=== PATIENT | male | born 1955 | race Caucasian/White ===

== ENCOUNTER 2018-11-14 14:00 | Inpatient (IN) | payer BC, MEDICARE ==
[~2018-11-14] VITALS: Ht 175.3 cm; Wt 83.6 kg
[2018-11-14 14:50] LABS: BASO % 1 % (0-3); EOS # 0.1 x10^3/uL (0.0-0.7); EOS % 1 % (0-3); HEMOGLOBIN 16.1 g/dL (13.0-17.5); LYMPH # 1.3 x10^3/uL (1.0-4.8); LYMPH % 14 % (24-48); MEAN CORPUSCULAR HEMOGLOBIN 32 pg (25-35); MEAN CORPUSCULAR HGB CONC 34 g/dL (31-37); MEAN CORPUSCULAR VOLUME 94 fL (79-100); MONO # 0.4 x10^3/uL (0.0-1.1); MONO % 5 % (0-9); NEUT # 7.1 x10^3uL (1.8-7.7); NEUT % 79 % (31-73); PLATELET COUNT 259 x10^3/uL (140-400); RED BLOOD COUNT 5.09 x10^6/uL (4.30-5.70); WHITE BLOOD COUNT 8.9 x10^3/uL (4.0-11.0)
--- NOTE | 2018-11-14 14:58 | RAD ---
CT HEAD WO CONTRAST History: Slurred speech, weakness Comparison: None. Technique: Noncontrast CT imaging was performed of the head. Exposure: One or more of the following individualized dose reduction techniques were utilized for this examination: 1. Automated exposure control 2. Adjustment of the mA and/or kV according to patient size 3. Use of iterative reconstruction technique. Findings: No acute extra-axial or parenchymal hemorrhage is identified. There is no significant intra-axial mass effect, midline shift, or extra-axial fluid collection. The carrillo-white differentiation of the major vascular territories is preserved. There is [id number] third ventriculomegaly and mild lateral ventriculomegaly although there is a component of supratentorial involutional change present. The mastoid air cells and the visualized paranasal sinuses are aerated. No acute calvarial abnormality is identified. Impression: 1. There is no evidence of acute intracranial hemorrhage. There is third and lateral ventriculomegaly although may be due to atrophy, no older exams to evaluate for change in size of ventricles. Electronically signed by: Martínez Diallo MD (11/14/2018 2:55 PM) [facility]
[2018-11-14 15:02] LABS: PROTHROMBIN TIME PATIENT 12.2 SEC (11.7-14.0)
[2018-11-14 15:12] LABS: CREATININE 0.9 mg/dL (0.7-1.3); GFR 85.2; POTASSIUM 4.3 mmol/L (3.5-5.1)
--- NOTE | 2018-11-14 15:13 | PHYS DOC ---
Past Medical History Past Medical History: Other Additional Past Medical Histor: Multiple sclerosis Past Surgical History: Other Additional Past Surgical Histo: I&D of abscess, tendon repair Alcohol Use: None Drug Use: None Adult General Chief Complaint Chief Complaint: NEURO SYMPTOMS/DEFICITS [facility] Patient is a 63 year old male who presents with with complaints of slurry speech and leg weakness with acute onset this morning at 0300. He is accompanied by his who provides history. He has a history of multiple sclerosis with chronic right sided weakness but was worse today. He reports that at 0300 he woke to urinate but was unable to ambulate like normal, and instead crawled to his bathroom, pulled himself to the toilet, relieved himself and then returned to bed, without alerting his . At 0930 his noticed he was slurring his words and thought his R-arm and leg were weaker than usual and decided to bring him to the hospital. His reports going to bed with him around 1130 pm and he was demonstrated no symptoms at that time. He denies history of TIA/stroke, heart disease. He denies CP, SOB, abdominal symptoms, lightheadedness, f/c/n/v. He denies blood thinners or ASA. He is followed by Dr. Brown for his multiple sclerosis which is treated with methotrexate.[] Review of Systems Review of Systems Constitutional: Denies fever or chills [] Eyes: Denies change in visual acuity, redness, or eye pain [] HENT: Denies nasal congestion or sore throat [] Respiratory: Denies cough or shortness of breath [] Cardiovascular: No additional information not addressed in HPI [] GI: Denies abdominal pain, nausea, vomiting, bloody stools or diarrhea [] : Denies dysuria or hematuria [] Musculoskeletal: Denies back pain or joint pain [] Integument: Denies rash or skin lesions [] Neurologic: Denies headache, reports upper and lower extremity weakness and sensory change[] Endocrine: Denies polyuria or polydipsia [] All other systems were reviewed and found to be within normal limits, except as documented in this note. Current Medications Current Medications see med list Allergies Allergies Allergies Coded Allergies Type Severity Reaction Last Updated Verified No Known Drug Allergies 12/06/14 No Physical Exam Physical Exam Constitutional: Well developed, well nourished, no acute distress, non-toxic appearance. [] HENT: Normocephalic, atraumatic, bilateral external ears normal, oropharynx moist, no oral exudates, nose normal. [] Eyes: PERRLA, EOMI, conjunctiva normal, no discharge. [] Neck: Normal range of motion, no tenderness, supple, no stridor. [] Cardiovascular:Heart rate regular rhythm, no murmur [] Lungs & Thorax: Bilateral breath sounds clear to auscultation [] Abdomen: Bowel sounds normal, soft, no tenderness, no masses, no pulsatile masses. [] Skin: Warm, dry, no erythema, no rash. [] Back: No tenderness, no CVA tenderness. [] Extremities: No tenderness, no cyanosis, no clubbing, ROM intact, no edema. [] Neurologic: Alert and oriented X 3, CN 2-11 intact decreased strength in the right lower extremity does fall to the bed client solutions director strengths are may be slightly decreased on the right speech is slurred face is symmetric C stroke scale Psychologic: Affect normal, judgement normal, mood normal. [] Current Patient Data Vital Signs Vital Signs Date Time Temp Pulse Resp B/P (MAP) Pulse Ox O2 Delivery O2 Flow Rate FiO2 11/14/18 14:15 98.9 60 18 147/74 (98) 96 Room Air 98.9 Lab Values Laboratory Tests Test 11/14/18 14:40 White Blood Count 8.9 x10^3/uL (4.0-11.0) Red Blood Count 5.09 x10^6/uL (4.30-5.70) Hemoglobin 16.1 g/dL (13.0-17.5) Hematocrit 48.0 % (39.0-53.0) Mean Corpuscular Volume 94 fL (79-100) Mean Corpuscular Hemoglobin 32 pg (25-35) Mean Corpuscular Hemoglobin Concent 34 g/dL (31-37) Red Cell Distribution Width 14.0 % (11.5-14.5) Platelet Count 259 x10^3/uL (140-400) Neutrophils (%) (Auto) 79 % (31-73) H Lymphocytes (%) (Auto) 14 % (24-48) L Monocytes (%) (Auto) 5 % (0-9) Eosinophils (%) (Auto) 1 % (0-3) Basophils (%) (Auto) 1 % (0-3) Neutrophils # (Auto) 7.1 x10^3uL (1.8-7.7) Lymphocytes # (Auto) 1.3 x10^3/uL (1.0-4.8) Monocytes # (Auto) 0.4 x10^3/uL (0.0-1.1) Eosinophils # (Auto) 0.1 x10^3/uL (0.0-0.7) Basophils # (Auto) 0.0 x10^3/uL (0.0-0.2) Prothrombin Time 12.2 SEC (11.7-14.0) Prothrombin Time INR 0.9 (0.8-1.1) Sodium Level 140 mmol/L (136-145) Potassium Level 4.3 mmol/L (3.5-5.1) Chloride Level 102 mmol/L (98-107) Carbon Dioxide Level 31 mmol/L (21-32) Anion Gap 7 (6-14) Blood Urea Nitrogen 17 mg/dL (8-26) Creatinine 0.9 mg/dL (0.7-1.3) Estimated GFR (Cockcroft-Gault) 85.2 BUN/Creatinine Ratio 19 (6-20) Glucose Level 107 mg/dL (70-99) H Calcium Level 9.0 mg/dL (8.5-10.1) Total Bilirubin 0.3 mg/dL (0.2-1.0) Aspartate Amino Transferase (AST) 22 U/L (15-37) Alanine Aminotransferase (ALT) 35 U/L (16-63) Alkaline Phosphatase 85 U/L (46-116) Total Protein 7.4 g/dL (6.4-8.2) Albumin 3.8 g/dL (3.4-5.0) Albumin/Globulin Ratio 1.1 (1.0-1.7) Laboratory Tests 11/14/18 14:40 Laboratory Tests 11/14/18 14:40 EKG EKG []EKG shows a normal sinus rhythm rate of 58 no acute ischemic changes noted interpreted by me the time of encounter. Radiology/Procedures Radiology/Procedures [] Impressions: Impression: 1. There is no evidence of acute intracranial hemorrhage. There is third and lateral ventriculomegaly although may be due to atrophy, no older exams to evaluate for change in size of ventricles. Electronically signed by: Martínez Diallo MD (11/14/2018 2:55 PM) [facility] Multiple healed right rib fracture deformities are identified. The heart size is not enlarged. No evidence of pneumothorax. No pleural effusion. IMPRESSION: No evidence of acute infiltrate. Electronically signed by: Larry Samuel MD (11/14/2018 3:11 PM) [facility] DICTATED and SIGNED BY: LARRY SAMUEL MD DATE: 11/14/18 1511 Course & Med Decision Making Course & Med Decision Making Pertinent Labs and Imaging studies reviewed. (See chart for details) Pt presents to ED with acute onset slurry speech and increased R-sided weakness from baseline with history of MS. Last known normal was 11:[address] to assess hemorrhage status with option to admit for MRI. Patient has no known CVA history and does have some mild right-sided weakness with new slurred speech according to the is not a TPA candidate due to time of onset Discussed with ARNEL FOR ADMIT ASPIRIN ORDERED IN ER, WELL SWALLOW SCREEN. [] Dragon Disclaimer Dragon Disclaimer This electronic medical record was generated, in whole or in part, using a voice recognition dictation system. Departure Departure Impression: Primary Impression: Weakness Disposition: ADMITTED INPATIENT Admitting Physician: Other Condition: STABLE AUBREE SETHI MD Nov 14, 2018 15:13
--- NOTE | 2018-11-14 15:13 | RAD ---
PORTABLE CHEST 1V History: WEAKNESS. Comparison with January 14, 2015 image, no report. Multiple healed right rib fracture deformities are identified. The heart size is not enlarged. No evidence of pneumothorax. No pleural effusion. IMPRESSION: No evidence of acute infiltrate. Electronically signed by: Larry Samuel MD (11/14/2018 3:11 PM) [facility]
[2018-11-14 15:17] LABS: ALBUMIN 3.8 g/dL (3.4-5.0); ALBUMIN/GLOBULIN RATIO 1.1 (1.0-1.7); TOTAL BILIRUBIN 0.3 mg/dL (0.2-1.0); TOTAL PROTEIN 7.4 g/dL (6.4-8.2)
[2018-11-14] MEDS ORDERED: ASPIRIN CHEWABLE 81 MG TABLET. PO ONE (15:30)
--- NOTE | 2018-11-14 16:08 | EKG ---
[facility] [address] [place] [address] Test Date: 2018-11-14 Test Time: 15:08:55 Pat Name: LEFTY ROJO Department: Room: 4 1 Gender: M Direct Marketing Intern: : 1955 Requested By: AUBREE SETHI Order Number: [id number] Reading MD: Freddy Stone MD Measurements Intervals [employer] Rate: 58 P: 31 ID: [id number] QRS: 25 QRSD: 88 T: 36 QT: 420 QTc: 416 Interpretive Statements SINUS RHYTHM Electronically Signed On 11-18-2018 14:59:29 CDT by Freddy Stone MD
[2018-11-14] MEDS ORDERED: DOCUSATE SODIUM 100 MG CAPSULE. PO PRN (16:15)
[2018-11-14] MEDS ORDERED: ALBUTEROL SULFATE 2.5 MG/3 ML NEBU. NEB PRN (16:15)
[2018-11-14] MEDS ORDERED: MAG HYDROX/ALUMINUM HYD/SIMETH 30 ML ORAL.SUSP PO PRN (16:15)
[2018-11-14] MEDS ORDERED: HYDROmorphone 2 MG/ML VIAL IV PRN (16:15)
[2018-11-14] MEDS ORDERED: LORazepam 0.5 MG TABLET PO PRN (16:15)
[2018-11-14] MEDS ORDERED: ACETAMINOPHEN 325 MG TABLET. PO PRN (16:15)
[2018-11-14] MEDS ORDERED: IPRATRPIUM/ALBUTEROL 0.5/2.5MG 3 ML NEBU. NEB SCH (16:15)
[2018-11-14] MEDS ORDERED: diphenhydrAMINE 50 MG/ML VIAL IVP PRN (16:15)
[2018-11-14] MEDS ORDERED: guaiFENesin ORAL 200 MG/10 ML LIQUID. PO PRN (16:15)
[2018-11-14] MEDS ORDERED: ONDANSETRON PF 4 MG/2 ML VIAL. IV PRN (16:15)
--- NOTE | 2018-11-14 16:23 | PDOC1 ---
History and Physical Date of Admission Date of Admission 11/14/2018 Identification/Chief Complaint Chief Complaint Weakness Problems: (1) Weakness Source Source: Caregiver, Chart review, Patient History of Present Illness History of Present Illness Patient is a 63-year-old gentleman with past medical history of multiple sclerosis diagnosed several years back. He has pain under the care of Dr. Brown neurology in the outpatient setting. The patient has undergone methotrexate therapy as per his was sitting at bedside and aiding with the history taking. Today the patient earlier in the day presented right sided weakness which to the patient's seem more pronounced than his usual baseline. She also had some slurred speech. There was a concern for an acute stroke reason why he was brought to the emergency department for further evaluation and treatment. The patient denied recent infections no fever no chills no neck stiffness no loss of consciousness. The patient denies ringing in the ears he denies vertigo-type of symptoms, no sick contacts were reported. The patient denies chest pain no palpitations no cough sputum production no pleurisy. He denies nausea vomiting no diarrhea and no decrease in oral intake either. He is alert awake oriented in person time place and situation cranial nerves II through XII seem to be intact he is right-handed and he does have probably F4 out of 5 motor strength or the right side slightly weaker than the left on both upper and lower extremities. He does not seem to have increased tone no spasticity noted no Lhermitte sign present. Last time he was seen by his neurologist was late in 2018 around July with no changes to his therapy. The patient has not had steroids in a long time and patient's refers to me that Dr. Brown treats him with a methotrexate regimen Plan of care clinic detail and all of her concerns address to the best of my abilities Past Medical History CENTRAL NERVOUS SYSTEM: Other (Multiple sclerosis) Past Surgical History Past Surgical History: No pertinent history Family History Family History: Other (no pertinent history ) Social History Smoke: No ALCOHOL: none Drugs: None Current Problem List Problem List Problems Medical Problems: (1) Weakness Status: Acute Current Medications Current Medications Current Medications Medications (Trade) Dose Ordered Sig/Td Start Time Stop Time Status Last Admin Dose Admin Acetaminophen (Tylenol) 650 mg PRN Q4HRS PRN 11/14/18 16:15 UNV Al Hydroxide/Mg Hydroxide (Mylanta Plus Xs) 30 ml PRN DAILY PRN 11/14/18 16:15 UNV Albuterol Sulfate (Ventolin Neb Soln) 2.5 mg PRN Q4HRS PRN 11/14/18 16:15 UNV Albuterol/ Ipratropium (Duoneb) 3 ml Q4H 11/14/18 16:15 UNV Aspirin (Children'S Aspirin) 324 mg 1X ONCE 11/14/18 15:30 11/14/18 15:31 DC 11/14/18 15:49 324 MG Diphenhydramine HCl (Benadryl) 25 mg PRN Q4HRS PRN 11/14/18 16:15 UNV Docusate Sodium (Colace) 100 mg PRN BID PRN 11/14/18 16:15 UNV Guaifenesin (Robitussin) 200 mg PRN Q4HRS PRN 11/14/18 16:15 UNV Hydromorphone HCl (Dilaudid) 1 mg PRN Q2HRS PRN 11/14/18 16:15 UNV Lorazepam (Ativan) 0.5 mg PRN Q4HRS PRN 11/14/18 16:15 UNV Ondansetron HCl (Zofran) 4 mg PRN Q4HRS PRN 11/14/18 16:15 UNV Allergies Allergies Allergies Coded Allergies Type Severity Reaction Last Updated Verified No Known Drug Allergies 12/06/14 No ROS Review of System CONSTITUTIONAL: No fever or chills EYES: No recent changes SKIN: No rash or itching CARDIOVASCULAR: No chest pain, syncope, palpitations, or edema RESPIRATORY: No SOB or cough GASTROINTESTINAL: No nausea, vomiting or abdominal pain NEUROLOGICAL: No headaches + weakness ENDOCRINE: No cold or heat intolerance GENITOURINARY: No urgency or frequency of urination MUSCULOSKELETAL: No back pain or joint pain LYMPHATICS: No enlarged lymph nodes PSYCHIATRIC: No anxiety or depression Physical Exam Physical Exam GEN.: No apparent distress. Alert and oriented. HEENT: Head is normocephalic, atraumatic NECK: Supple. LUNGS: Clear to auscultation. HEART: RRR, S1, S2 present. Peripheral pulses intact ABDOMEN: Soft, nontender. Positive bowel sounds. EXTREMITIES: Without any cyanosis. NEUROLOGIC: Normal speech, normal tone PSYCHIATRIC: Normal affect, normal mood. SKIN: No ulcerations Vitals Vitals Vital Signs Date Time Temp Pulse Resp B/P (MAP) Pulse Ox O2 Delivery O2 Flow Rate FiO2 11/14/18 15:30 72 16 98 11/14/18 14:15 98.9 147/74 (98) Room Air 98.9 Labs Labs Laboratory Tests Test 11/14/18 14:40 White Blood Count 8.9 x10^3/uL (4.0-11.0) Red Blood Count 5.09 x10^6/uL (4.30-5.70) Hemoglobin 16.1 g/dL (13.0-17.5) Hematocrit 48.0 % (39.0-53.0) Mean Corpuscular Volume 94 fL (79-100) Mean Corpuscular Hemoglobin 32 pg (25-35) Mean Corpuscular Hemoglobin Concent 34 g/dL (31-37) Red Cell Distribution Width 14.0 % (11.5-14.5) Platelet Count 259 x10^3/uL (140-400) Neutrophils (%) (Auto) 79 % (31-73) Lymphocytes (%) (Auto) 14 % (24-48) Monocytes (%) (Auto) 5 % (0-9) Eosinophils (%) (Auto) 1 % (0-3) Basophils (%) (Auto) 1 % (0-3) Neutrophils # (Auto) 7.1 x10^3uL (1.8-7.7) Lymphocytes # (Auto) 1.3 x10^3/uL (1.0-4.8) Monocytes # (Auto) 0.4 x10^3/uL (0.0-1.1) Eosinophils # (Auto) 0.1 x10^3/uL (0.0-0.7) Basophils # (Auto) 0.0 x10^3/uL (0.0-0.2) Prothrombin Time 12.2 SEC (11.7-14.0) Prothromb Time International Ratio 0.9 (0.8-1.1) Sodium Level 140 mmol/L (136-145) Potassium Level 4.3 mmol/L (3.5-5.1) Chloride Level 102 mmol/L (98-107) Carbon Dioxide Level 31 mmol/L (21-32) Anion Gap 7 (6-14) Blood Urea Nitrogen 17 mg/dL (8-26) Creatinine 0.9 mg/dL (0.7-1.3) Estimated GFR (Cockcroft-Gault) 85.2 BUN/Creatinine Ratio 19 (6-20) Glucose Level 107 mg/dL (70-99) Calcium Level 9.0 mg/dL (8.5-10.1) Total Bilirubin 0.3 mg/dL (0.2-1.0) Aspartate Amino Transf (AST/SGOT) 22 U/L (15-37) Alanine Aminotransferase (ALT/SGPT) 35 U/L (16-63) Alkaline Phosphatase 85 U/L (46-116) Total Protein 7.4 g/dL (6.4-8.2) Albumin 3.8 g/dL (3.4-5.0) Albumin/Globulin Ratio 1.1 (1.0-1.7) Laboratory Tests Test 11/14/18 14:40 White Blood Count 8.9 x10^3/uL (4.0-11.0) Red Blood Count 5.09 x10^6/uL (4.30-5.70) Hemoglobin 16.1 g/dL (13.0-17.5) Hematocrit 48.0 % (39.0-53.0) Mean Corpuscular Volume 94 fL (79-100) Mean Corpuscular Hemoglobin 32 pg (25-35) Mean Corpuscular Hemoglobin Concent 34 g/dL (31-37) Red Cell Distribution Width 14.0 % (11.5-14.5) Platelet Count 259 x10^3/uL (140-400) Neutrophils (%) (Auto) 79 % (31-73) Lymphocytes (%) (Auto) 14 % (24-48) Monocytes (%) (Auto) 5 % (0-9) Eosinophils (%) (Auto) 1 % (0-3) Basophils (%) (Auto) 1 % (0-3) Neutrophils # (Auto) 7.1 x10^3uL (1.8-7.7) Lymphocytes # (Auto) 1.3 x10^3/uL (1.0-4.8) Monocytes # (Auto) 0.4 x10^3/uL (0.0-1.1) Eosinophils # (Auto) 0.1 x10^3/uL (0.0-0.7) Basophils # (Auto) 0.0 x10^3/uL (0.0-0.2) Prothrombin Time 12.2 SEC (11.7-14.0) Prothromb Time International Ratio 0.9 (0.8-1.1) Sodium Level 140 mmol/L (136-145) Potassium Level 4.3 mmol/L (3.5-5.1) Chloride Level 102 mmol/L (98-107) Carbon Dioxide Level 31 mmol/L (21-32) Anion Gap 7 (6-14) Blood Urea Nitrogen 17 mg/dL (8-26) Creatinine 0.9 mg/dL (0.7-1.3) Estimated GFR (Cockcroft-Gault) 85.2 BUN/Creatinine Ratio 19 (6-20) Glucose Level 107 mg/dL (70-99) Calcium Level 9.0 mg/dL (8.5-10.1) Total Bilirubin 0.3 mg/dL (0.2-1.0) Aspartate Amino Transf (AST/SGOT) 22 U/L (15-37) Alanine Aminotransferase (ALT/SGPT) 35 U/L (16-63) Alkaline Phosphatase 85 U/L (46-116) Total Protein 7.4 g/dL (6.4-8.2) Albumin 3.8 g/dL (3.4-5.0) Albumin/Globulin Ratio 1.1 (1.0-1.7) VTE Prophylaxis Ordered VTE Prophylaxis Devices: No VTE Pharmacological Prophylaxi: Yes Assessment/Plan Assessment/Plan Acute multiple sclerosis exacerbation Weakness most likely secondary to the above. Acute stroke less likely Plan: request records from Dr Brown office MRI of the brain supportive measures will restart home meds once available for review further recommendations based on clinical course dvt prophylaxis: lovenox will consult PT and BARBARA RAMIREZ MD Nov 14, 2018 16:23
[2018-11-14 16:57] LABS: BILIRUBIN,URINE NEGATIVE (NEG); CLARITY,URINE CLOUDY; COLOR,URINE YELLOW; NITRITE,URINE NEGATIVE (NEG); PH,URINE 6.5; PROTEIN,URINE NEGATIVE (NEG-TRACE); UROBILINOGEN,URINE 0.2 mg/dL (0.2 mg/dL)
[2018-11-14 17:06] LABS: AMORPHOUS SEDIMENT,UR PRESENT /HPF; BACTERIA,URINE 0 /HPF (0-FEW); WBC,URINE 0 /HPF (0-4)
[2018-11-14 17:34] VITALS: BP 128/64
[2018-11-14] MEDS ORDERED: FOLI1TAB16 PO (18:23)
[2018-11-14] MEDS ORDERED: PARO20TA3 PO (18:23)
[2018-11-14] MEDS ORDERED: QUET50TA PO (18:23)
[2018-11-14] MEDS ORDERED: BACL10TA PO (18:23)
[2018-11-14 19:57] VITALS: BP 96/43
[2018-11-14] MEDS: IPRATRPIUM/ALBUTEROL 0.5/2.5MG 3 ML NEBU. NEB SCH ×2 (20:00→23:01)
[2018-11-14] MEDS: BACLOFEN 10 MG TABLET. PO SCH (20:37)
[2018-11-14 23:38] VITALS: BP 110/63
[2018-11-15] MEDS: IPRATRPIUM/ALBUTEROL 0.5/2.5MG 3 ML NEBU. NEB SCH ×2 (02:53→08:00)
[2018-11-15 03:59] VITALS: BP 126/65
[2018-11-15 07:15] VITALS: BP 102/59
[2018-11-15] MEDS: BACLOFEN 10 MG TABLET. PO SCH ×2 (08:53→20:39)
[2018-11-15] MEDS ORDERED: QUEtiapine 25 MG TABLET. PO SCH ×2 (09:00→21:00)
[2018-11-15] MEDS ORDERED: PARoxetine 20 MG TABLET PO SCH ×2 (09:00→21:00)
--- NOTE | 2018-11-15 09:00 | NUR ---
Seroquel and Paxil changed to HS per Pt's spouse request.
[2018-11-15] MEDS ORDERED: IPRATRPIUM/ALBUTEROL 0.5/2.5MG 3 ML NEBU. NEB PRN (10:00)
--- NOTE | 2018-11-15 10:25 | PDOC ---
PROGRESS NOTES Chief Complaint Chief Complaint general weakness, slurred speech History of Present Illness History of Present Illness Patient sitting in bed side chair conversing with . He experienced sudden onset of generalized weakness and slurred speech yesterday, weakness much worse than typical MS exacerbations. His reports he is back to baseline today. Sees Dr. Brown at [facility] for neurology, does not typically use steroids for exacerbations. Vitals Vitals Vital Signs Date Time Temp Pulse Resp B/P (MAP) Pulse Ox O2 Delivery O2 Flow Rate FiO2 11/15/18 07:15 98.0 74 18 102/59 (73) 96 Room Air 98.0 Physical Exam General: Alert, Oriented X3, Cooperative, No acute distress Heart: Regular rate, Normal S1, Normal S2, No murmurs Lungs: Clear, Other (symmetric chest expansion, good inspiratory effort) Abdomen: Normal bowel sounds, Soft, No tenderness Extremities: No clubbing, No cyanosis, No edema Skin: No rashes, No breakdown, No significant lesion Labs LABS Laboratory Tests Test 11/14/18 14:40 11/14/18 16:50 White Blood Count 8.9 x10^3/uL (4.0-11.0) Red Blood Count 5.09 x10^6/uL (4.30-5.70) Hemoglobin 16.1 g/dL (13.0-17.5) Hematocrit 48.0 % (39.0-53.0) Mean Corpuscular Volume 94 fL (79-100) Mean Corpuscular Hemoglobin 32 pg (25-35) Mean Corpuscular Hemoglobin Concent 34 g/dL (31-37) Red Cell Distribution Width 14.0 % (11.5-14.5) Platelet Count 259 x10^3/uL (140-400) Neutrophils (%) (Auto) 79 % (31-73) Lymphocytes (%) (Auto) 14 % (24-48) Monocytes (%) (Auto) 5 % (0-9) Eosinophils (%) (Auto) 1 % (0-3) Basophils (%) (Auto) 1 % (0-3) Neutrophils # (Auto) 7.1 x10^3uL (1.8-7.7) Lymphocytes # (Auto) 1.3 x10^3/uL (1.0-4.8) Monocytes # (Auto) 0.4 x10^3/uL (0.0-1.1) Eosinophils # (Auto) 0.1 x10^3/uL (0.0-0.7) Basophils # (Auto) 0.0 x10^3/uL (0.0-0.2) Prothrombin Time 12.2 SEC (11.7-14.0) Prothromb Time International Ratio 0.9 (0.8-1.1) Sodium Level 140 mmol/L (136-145) Potassium Level 4.3 mmol/L (3.5-5.1) Chloride Level 102 mmol/L (98-107) Carbon Dioxide Level 31 mmol/L (21-32) Anion Gap 7 (6-14) Blood Urea Nitrogen 17 mg/dL (8-26) Creatinine 0.9 mg/dL (0.7-1.3) Estimated GFR (Cockcroft-Gault) 85.2 BUN/Creatinine Ratio 19 (6-20) Glucose Level 107 mg/dL (70-99) Calcium Level 9.0 mg/dL (8.5-10.1) Total Bilirubin 0.3 mg/dL (0.2-1.0) Aspartate Amino Transf (AST/SGOT) 22 U/L (15-37) Alanine Aminotransferase (ALT/SGPT) 35 U/L (16-63) Alkaline Phosphatase 85 U/L (46-116) Total Protein 7.4 g/dL (6.4-8.2) Albumin 3.8 g/dL (3.4-5.0) Albumin/Globulin Ratio 1.1 (1.0-1.7) Urine Collection Type Unknown Urine Color Yellow Urine Clarity Cloudy Urine pH 6.5 Urine Specific [place] 1.020 Urine Protein Negative mg/dL (NEG-TRACE) Urine Glucose (UA) Negative mg/dL (NEG) Urine Ketones (Stick) Negative mg/dL (NEG) Urine Blood Negative (NEG) Urine Nitrite Negative (NEG) Urine Bilirubin Negative (NEG) Urine Urobilinogen Dipstick 0.2 mg/dL (0.2 mg/dL) Urine Leukocyte Esterase Negative (NEG) Urine RBC 1-2 /HPF (0-2) Urine WBC 0 /HPF (0-4) Urine Amorphous Sediment Present /HPF Urine Bacteria 0 /HPF (0-FEW) Urine Mucus Mod /LPF Review of Systems Review of Systems as per above Assessment and Plan Assessmemt and Plan Problems Medical Problems: (1) Weakness Status: Acute Assessment: TIA Possible acute MS exacerbation Generalized weakness Plan: Consult Neurology Brain MRI pending Head CT - no acute hemorrhage, 3rd and lateral ventriculomegaly Aspirin 325 mg daily CXR negative UA negative Labs wnl PT/OT Dispo: will await neuro input, hope to discharge later today if ok with neuro Comment Review of Relevant I have reviewed the following items [place] (where applicable) has been applied. Labs Laboratory Tests Test 11/14/18 14:40 11/14/18 16:50 White Blood Count 8.9 x10^3/uL (4.0-11.0) Red Blood Count 5.09 x10^6/uL (4.30-5.70) Hemoglobin 16.1 g/dL (13.0-17.5) Hematocrit 48.0 % (39.0-53.0) Mean Corpuscular Volume 94 fL (79-100) Mean Corpuscular Hemoglobin 32 pg (25-35) Mean Corpuscular Hemoglobin Concent 34 g/dL (31-37) Red Cell Distribution Width 14.0 % (11.5-14.5) Platelet Count 259 x10^3/uL (140-400) Neutrophils (%) (Auto) 79 % (31-73) Lymphocytes (%) (Auto) 14 % (24-48) Monocytes (%) (Auto) 5 % (0-9) Eosinophils (%) (Auto) 1 % (0-3) Basophils (%) (Auto) 1 % (0-3) Neutrophils # (Auto) 7.1 x10^3uL (1.8-7.7) Lymphocytes # (Auto) 1.3 x10^3/uL (1.0-4.8) Monocytes # (Auto) 0.4 x10^3/uL (0.0-1.1) Eosinophils # (Auto) 0.1 x10^3/uL (0.0-0.7) Basophils # (Auto) 0.0 x10^3/uL (0.0-0.2) Prothrombin Time 12.2 SEC (11.7-14.0) Prothromb Time International Ratio 0.9 (0.8-1.1) Sodium Level 140 mmol/L (136-145) Potassium Level 4.3 mmol/L (3.5-5.1) Chloride Level 102 mmol/L (98-107) Carbon Dioxide Level 31 mmol/L (21-32) Anion Gap 7 (6-14) Blood Urea Nitrogen 17 mg/dL (8-26) Creatinine 0.9 mg/dL (0.7-1.3) Estimated GFR (Cockcroft-Gault) 85.2 BUN/Creatinine Ratio 19 (6-20) Glucose Level 107 mg/dL (70-99) Calcium Level 9.0 mg/dL (8.5-10.1) Total Bilirubin 0.3 mg/dL (0.2-1.0) Aspartate Amino Transf (AST/SGOT) 22 U/L (15-37) Alanine Aminotransferase (ALT/SGPT) 35 U/L (16-63) Alkaline Phosphatase 85 U/L (46-116) Total Protein 7.4 g/dL (6.4-8.2) Albumin 3.8 g/dL (3.4-5.0) Albumin/Globulin Ratio 1.1 (1.0-1.7) Urine Collection Type Unknown Urine Color Yellow Urine Clarity Cloudy Urine pH 6.5 Urine Specific [place] 1.020 Urine Protein Negative mg/dL (NEG-TRACE) Urine Glucose (UA) Negative mg/dL (NEG) Urine Ketones (Stick) Negative mg/dL (NEG) Urine Blood Negative (NEG) Urine Nitrite Negative (NEG) Urine Bilirubin Negative (NEG) Urine Urobilinogen Dipstick 0.2 mg/dL (0.2 mg/dL) Urine Leukocyte Esterase Negative (NEG) Urine RBC 1-2 /HPF (0-2) Urine WBC 0 /HPF (0-4) Urine Amorphous Sediment Present /HPF Urine Bacteria 0 /HPF (0-FEW) Urine Mucus Mod /LPF Laboratory Tests Test 11/14/18 14:40 11/14/18 16:50 White Blood Count 8.9 x10^3/uL (4.0-11.0) Red Blood Count 5.09 x10^6/uL (4.30-5.70) Hemoglobin 16.1 g/dL (13.0-17.5) Hematocrit 48.0 % (39.0-53.0) Mean Corpuscular Volume 94 fL (79-100) Mean Corpuscular Hemoglobin 32 pg (25-35) Mean Corpuscular Hemoglobin Concent 34 g/dL (31-37) Red Cell Distribution Width 14.0 % (11.5-14.5) Platelet Count 259 x10^3/uL (140-400) Neutrophils (%) (Auto) 79 % (31-73) Lymphocytes (%) (Auto) 14 % (24-48) Monocytes (%) (Auto) 5 % (0-9) Eosinophils (%) (Auto) 1 % (0-3) Basophils (%) (Auto) 1 % (0-3) Neutrophils # (Auto) 7.1 x10^3uL (1.8-7.7) Lymphocytes # (Auto) 1.3 x10^3/uL (1.0-4.8) Monocytes # (Auto) 0.4 x10^3/uL (0.0-1.1) Eosinophils # (Auto) 0.1 x10^3/uL (0.0-0.7) Basophils # (Auto) 0.0 x10^3/uL (0.0-0.2) Prothrombin Time 12.2 SEC (11.7-14.0) Prothromb Time International Ratio 0.9 (0.8-1.1) Sodium Level 140 mmol/L (136-145) Potassium Level 4.3 mmol/L (3.5-5.1) Chloride Level 102 mmol/L (98-107) Carbon Dioxide Level 31 mmol/L (21-32) Anion Gap 7 (6-14) Blood Urea Nitrogen 17 mg/dL (8-26) Creatinine 0.9 mg/dL (0.7-1.3) Estimated GFR (Cockcroft-Gault) 85.2 BUN/Creatinine Ratio 19 (6-20) Glucose Level 107 mg/dL (70-99) Calcium Level 9.0 mg/dL (8.5-10.1) Total Bilirubin 0.3 mg/dL (0.2-1.0) Aspartate Amino Transf (AST/SGOT) 22 U/L (15-37) Alanine Aminotransferase (ALT/SGPT) 35 U/L (16-63) Alkaline Phosphatase 85 U/L (46-116) Total Protein 7.4 g/dL (6.4-8.2) Albumin 3.8 g/dL (3.4-5.0) Albumin/Globulin Ratio 1.1 (1.0-1.7) Urine Collection Type Unknown Urine Color Yellow Urine Clarity Cloudy Urine pH 6.5 Urine Specific [place] 1.020 Urine Protein Negative mg/dL (NEG-TRACE) Urine Glucose (UA) Negative mg/dL (NEG) Urine Ketones (Stick) Negative mg/dL (NEG) Urine Blood Negative (NEG) Urine Nitrite Negative (NEG) Urine Bilirubin Negative (NEG) Urine Urobilinogen Dipstick 0.2 mg/dL (0.2 mg/dL) Urine Leukocyte Esterase Negative (NEG) Urine RBC 1-2 /HPF (0-2) Urine WBC 0 /HPF (0-4) Urine Amorphous Sediment Present /HPF Urine Bacteria 0 /HPF (0-FEW) Urine Mucus Mod /LPF Medications Current Medications Aspirin (Children'S Aspirin) 324 mg 1X ONCE PO Last administered on 11/14/18at 15:49; Start 11/14/18 at 15:30; Stop 11/14/18 at 15:31; Status DC Ondansetron HCl (Zofran) 4 mg PRN Q4HRS PRN IV NAUSEA/VOMITING; Start 11/14/18 at 16:15 Acetaminophen (Tylenol) 650 mg PRN Q4HRS PRN PO TEMP OVER 100.4F OR MILD PAIN; Start 11/14/18 at 16:15 Al Hydroxide/Mg Hydroxide (Mylanta Plus Xs) 30 ml PRN DAILY PRN PO HEARTBURN / GAS; Start 11/14/18 at 16:15 Diphenhydramine HCl (Benadryl) 25 mg PRN Q4HRS PRN IVP ITCHING; Start 11/14/18 at 16:15 Docusate Sodium (Colace) 100 mg PRN BID PRN PO CONSTIPATION; Start 11/14/18 at 16:15 Albuterol Sulfate (Ventolin Neb Soln) 2.5 mg PRN Q4HRS PRN NEB SHORTNESS OF BREATH,1st CHOICE; Start 11/14/18 at 16:15 Albuterol/ Ipratropium (Duoneb) 3 ml Q4H NEB ; Start 11/14/18 at 16:15; Stop 11/14 at 16:18; Status DC Guaifenesin (Robitussin) 200 mg PRN Q4HRS PRN PO COUGH; Start 11/14/18 at 16:15 Lorazepam (Ativan) 0.5 mg PRN Q4HRS PRN PO ANXIETY / AGITATION; Start 11/14/18 at 16:15 Hydromorphone HCl (Dilaudid) 1 mg PRN Q2HRS PRN IV SEVERE PAIN; Start 11/14/18 at 16:15 Albuterol/ Ipratropium (Duoneb) 3 ml Q4HRS NEB ; Start 11/14/18 at 20:00; Stop at 09:55; Status DC Baclofen (Lioresal) 10 mg BID PO Last administered on 11/15/18at 08:53; Start 11/14/18 at 21:00 Paroxetine HCl (Paxil) 20 mg DAILY PO ; Start 11/15/18 at 09:00; Stop 11/15/18 at 09:07; Status DC Quetiapine Fumarate (SEROquel) 50 mg DAILY PO ; Start 11/15/18 at 09:00; Stop 11/15/18 at 09:07; Status DC Paroxetine HCl (Paxil) 20 mg HS PO ; Start 11/15/18 at 21:00 Quetiapine Fumarate (SEROquel) 50 mg HS PO ; Start 11/15/18 at 21:00 Albuterol/ Ipratropium (Duoneb) 3 ml PRN Q4HRS PRN NEB SHORTNESS OF BREATH,2nd CHOICE; Start 11/15/18 at 10:00 Active Scripts Active Reported Quetiapine Fumarate 50 Mg Tablet 50 PO DAILY Baclofen 10 Mg Tablet 10 PO BID Paroxetine Hcl 20 Mg Tablet 20 PO DAILY Folic Acid 1 Mg Tablet 1 PO DAILY Vitals/I & O Vital Sign - Last 24 Hours 11/14/18 11/14/18 11/14/18 11/14/18 14:00 14:15 15:30 16:28 Temp 98.9 98.9 Pulse 61 60 72 65 Resp 17 18 16 16 B/P (MAP) 147/74 (98) Pulse Ox 97 96 98 96 O2 Delivery Room Air 11/14/18 11/14/18 11/14/18 11/14/18 16:58 17:34 19:57 20:18 Temp 97.7 98.3 97.7 98.3 Pulse 67 63 70 Resp 18 16 17 B/P (MAP) 128/64 (85) 96/43 (60) Pulse Ox 96 99 98 O2 Delivery Room Air Room Air Room Air 11/14/18 11/15/18 11/15/18 23:38 03:59 07:15 Temp 98.1 98.1 98.0 98.1 98.1 98.0 Pulse 67 73 74 Resp 18 18 18 B/P (MAP) 110/63 (79) 126/65 (85) 102/59 (73) Pulse Ox 95 94 96 O2 Delivery Room Air Room Air Room Air Intake and Output 11/14/18 11/14/18 11/15/18 14:59 22:59 06:59 Intake Total 680 ml 240 ml Balance 680 ml 240 ml NARAYAN BURRIS III DO Nov 15, 2018 10:25
[2018-11-15 11:00] VITALS: BP 96/48
[2018-11-15] MEDS ORDERED: ASPIRIN 325 MG TABLET PO SCH (11:30)
--- NOTE | 2018-11-15 14:47 | NUR ---
This RN spoke with CHELA Preston regarding MRI order which was not entered or approved by a Neurologist. This RN spoke with Dr Vallecillo and he stated he will come to see Pt first before he approves for the MRI to be done. Pt and family aware.
[2018-11-15 15:00] VITALS: BP 118/54
[2018-11-15] MEDS ORDERED: ASPIRIN RECTAL 300 MG SUPP. PR PRN (15:30)
[2018-11-15] MEDS ORDERED: ACETAMINOPHEN 650 MG SUPP.RECT. PR PRN (15:30)
[2018-11-15] MEDS ORDERED: ACETAMINOPHEN 325 MG TABLET. PO PRN (15:30)
--- NOTE | 2018-11-15 16:21 | PDOC2 ---
NEUROLOGY CONSULT Date of Admission Date of Admission DATE: 11/15/18 TIME: 16:14 Reason for Consult Reason for Consult: Stroke versus multiple sclerosis attack Referring Physician Referring Physician: Dr. Yan Source Source: Caregiver (), Chart review, Patient History of Present Illness History of Present Illness The patient is a 63-year-old right-handed male with history of multiple sclerosis, who at 3 am yesterday morning noted the acute onset of dysarthria. He also had trouble walking. There is no prior history of stroke. His says his multiple sclerosis has been stable for several years on methotrexate. He follows with Dr. Brown at . He denies headache, diplopia, dysphagia, or numbness. There is no prior history of stroke. The highest blood pressure here was 147/94. Past Medical History CENTRAL NERVOUS SYSTEM: Other (multiple sclerosis) Past Surgical History Past Surgical History: No pertinent history Family History Family History: Hypertension Social History Social History Smokes about a pack of cigarettes per day, no alcohol, disabled Current Medications Current Medications Current Medications Aspirin (Children'S Aspirin) 324 mg 1X ONCE PO Last administered on 11/14/18at 15:49; Start 11/14/18 at 15:30; Stop 11/14/18 at 15:31; Status DC Ondansetron HCl (Zofran) 4 mg PRN Q4HRS PRN IV NAUSEA/VOMITING; Start 11/14/18 at 16:15 Acetaminophen (Tylenol) 650 mg PRN Q4HRS PRN PO TEMP OVER 100.4F OR MILD PAIN; Start 11/14/18 at 16:15; Stop 11/15/18 at 15:35; Status DC Al Hydroxide/Mg Hydroxide (Mylanta Plus Xs) 30 ml PRN DAILY PRN PO HEARTBURN / GAS; Start 11/14/18 at 16:15 Diphenhydramine HCl (Benadryl) 25 mg PRN Q4HRS PRN IVP ITCHING; Start 11/14/18 at 16:15 Docusate Sodium (Colace) 100 mg PRN BID PRN PO CONSTIPATION; Start 11/14/18 at 16:15 Albuterol Sulfate (Ventolin Neb Soln) 2.5 mg PRN Q4HRS PRN NEB SHORTNESS OF BREATH,1st CHOICE; Start 11/14/18 at 16:15 Albuterol/ Ipratropium (Duoneb) 3 ml Q4H NEB ; Start 11/14/18 at 16:15; Stop 11/14 at 16:18; Status DC Guaifenesin (Robitussin) 200 mg PRN Q4HRS PRN PO COUGH; Start 11/14/18 at 16:15 Lorazepam (Ativan) 0.5 mg PRN Q4HRS PRN PO ANXIETY / AGITATION; Start 11/14/18 at 16:15 Hydromorphone HCl (Dilaudid) 1 mg PRN Q2HRS PRN IV SEVERE PAIN; Start 11/14/18 at 16:15 Albuterol/ Ipratropium (Duoneb) 3 ml Q4HRS NEB ; Start 11/14/18 at 20:00; Stop at 09:55; Status DC Baclofen (Lioresal) 10 mg BID PO Last administered on 11/15/18at 08:53; Start 11/14/18 at 21:00 Paroxetine HCl (Paxil) 20 mg DAILY PO ; Start 11/15/18 at 09:00; Stop 11/15/18 at 09:07; Status DC Quetiapine Fumarate (SEROquel) 50 mg DAILY PO ; Start 11/15/18 at 09:00; Stop 11/15/18 at 09:07; Status DC Paroxetine HCl (Paxil) 20 mg HS PO ; Start 11/15/18 at 21:00 Quetiapine Fumarate (SEROquel) 50 mg HS PO ; Start 11/15/18 at 21:00 Albuterol/ Ipratropium (Duoneb) 3 ml PRN Q4HRS PRN NEB SHORTNESS OF BREATH,2nd CHOICE; Start 11/15/18 at 10:00 Aspirin (Parminder Aspirin) 325 mg DAILYWBKFT PO Last administered on 11/15/18at 11: 44; Start 11/15/18 at 11:30; Stop 11/15/18 at 15:36; Status DC Acetaminophen (Tylenol) 650 mg PRN Q6HRS PRN PO TEMP > 100.4F; Start 11/15/18 at 15:30 Acetaminophen (Tylenol Supp) 650 mg PRN Q4HRS PRN IN TEMP > 100.4F; Start at 15:30 Aspirin (Ecotrin) 325 mg DAILYWBKFT PO ; Start 11/16/18 at 08:00 Aspirin (Aspirin) 300 mg PRN DAILY PRN IN IF UNABLE TO TAKE PO; Start 11/15/18 at 15:30 Active Scripts Active Reported Quetiapine Fumarate 50 Mg Tablet 50 PO DAILY Baclofen 10 Mg Tablet 10 PO BID Paroxetine Hcl 20 Mg Tablet 20 PO DAILY Folic Acid 1 Mg Tablet 1 PO DAILY Allergies Allergies: Coded Allergies: No Known Drug Allergies (Unverified , 12/06/14) ROS Review of System Negative for fever, chills, weight loss, shortness of breath, chest pain, indigestion, hematochezia, melena, and dysuria. Full 14-point review of systems is negative. Physical Exam Physical Examination General: Well-developed, well-nourished white male in no acute distress HEENT: Normocephalic andatraumatic. Tympanic membranes clear.Temporal arteries pulsatile and nontender.Fundoscopic exam unremarkable Neck: Supple without bruit, no meningismus Musculoskeletal: Stability:see neurologic. Gait exam:see neurologic. Tone:see neurologic. Strength:see neurologic. Neurological: Mental Status:intact, orientation, memory, attention span/concentration, language, fund of knowledge normal. Speech is dysarthric. Cranial Nerves: Pupils equal and reactive to light, extraocular movements areintact, visual urias are full to confrontation. Facial sensation is normal. There is no facial asymmetry. Vestibulo-ocular reflex is intact. Palate elevates and tongue protrudes in midline. All other cranial related problems are negative except as mentioned before.Reflexes:2+ and symmetric with flexor plantar responses. Motor:5/5 strength with normal tone and bulk. Coordination:Finger-nose finger and rfvg-[id number] testing are normal. Rapid alternating movements and fine finger movements are intact. Gait:Markedly ataxic, falls to the left. Sensory: Normal pinprick, vibration, light touch, proprioception. Vitals VITALS Vital Signs Date Time Temp Pulse Resp B/P (MAP) Pulse Ox O2 Delivery O2 Flow Rate FiO2 11/15/18 15:00 98.0 67 20 118/54 (75) 98 Room Air 98.0 Labs Labs Laboratory Tests Test 11/14/18 14:40 11/14/18 16:50 White Blood Count 8.9 x10^3/uL (4.0-11.0) Red Blood Count 5.09 x10^6/uL (4.30-5.70) Hemoglobin 16.1 g/dL (13.0-17.5) Hematocrit 48.0 % (39.0-53.0) Mean Corpuscular Volume 94 fL (79-100) Mean Corpuscular Hemoglobin 32 pg (25-35) Mean Corpuscular Hemoglobin Concent 34 g/dL (31-37) Red Cell Distribution Width 14.0 % (11.5-14.5) Platelet Count 259 x10^3/uL (140-400) Neutrophils (%) (Auto) 79 % (31-73) Lymphocytes (%) (Auto) 14 % (24-48) Monocytes (%) (Auto) 5 % (0-9) Eosinophils (%) (Auto) 1 % (0-3) Basophils (%) (Auto) 1 % (0-3) Neutrophils # (Auto) 7.1 x10^3uL (1.8-7.7) Lymphocytes # (Auto) 1.3 x10^3/uL (1.0-4.8) Monocytes # (Auto) 0.4 x10^3/uL (0.0-1.1) Eosinophils # (Auto) 0.1 x10^3/uL (0.0-0.7) Basophils # (Auto) 0.0 x10^3/uL (0.0-0.2) Prothrombin Time 12.2 SEC (11.7-14.0) Prothromb Time International Ratio 0.9 (0.8-1.1) Sodium Level 140 mmol/L (136-145) Potassium Level 4.3 mmol/L (3.5-5.1) Chloride Level 102 mmol/L (98-107) Carbon Dioxide Level 31 mmol/L (21-32) Anion Gap 7 (6-14) Blood Urea Nitrogen 17 mg/dL (8-26) Creatinine 0.9 mg/dL (0.7-1.3) Estimated GFR (Cockcroft-Gault) 85.2 BUN/Creatinine Ratio 19 (6-20) Glucose Level 107 mg/dL (70-99) Calcium Level 9.0 mg/dL (8.5-10.1) Total Bilirubin 0.3 mg/dL (0.2-1.0) Aspartate Amino Transf (AST/SGOT) 22 U/L (15-37) Alanine Aminotransferase (ALT/SGPT) 35 U/L (16-63) Alkaline Phosphatase 85 U/L (46-116) Total Protein 7.4 g/dL (6.4-8.2) Albumin 3.8 g/dL (3.4-5.0) Albumin/Globulin Ratio 1.1 (1.0-1.7) Urine Collection Type Unknown Urine Color Yellow Urine Clarity Cloudy Urine pH 6.5 Urine Specific [place] 1.020 Urine Protein Negative mg/dL (NEG-TRACE) Urine Glucose (UA) Negative mg/dL (NEG) Urine Ketones (Stick) Negative mg/dL (NEG) Urine Blood Negative (NEG) Urine Nitrite Negative (NEG) Urine Bilirubin Negative (NEG) Urine Urobilinogen Dipstick 0.2 mg/dL (0.2 mg/dL) Urine Leukocyte Esterase Negative (NEG) Urine RBC 1-2 /HPF (0-2) Urine WBC 0 /HPF (0-4) Urine Amorphous Sediment Present /HPF Urine Bacteria 0 /HPF (0-FEW) Urine Mucus Mod /LPF Laboratory Tests Test 11/14/18 16:50 Urine Collection Type Unknown Urine Color Yellow Urine Clarity Cloudy Urine pH 6.5 Urine Specific [place] 1.020 Urine Protein Negative mg/dL (NEG-TRACE) Urine Glucose (UA) Negative mg/dL (NEG) Urine Ketones (Stick) Negative mg/dL (NEG) Urine Blood Negative (NEG) Urine Nitrite Negative (NEG) Urine Bilirubin Negative (NEG) Urine Urobilinogen Dipstick 0.2 mg/dL (0.2 mg/dL) Urine Leukocyte Esterase Negative (NEG) Urine RBC 1-2 /HPF (0-2) Urine WBC 0 /HPF (0-4) Urine Amorphous Sediment Present /HPF Urine Bacteria 0 /HPF (0-FEW) Urine Mucus Mod /LPF Images Images CT HEAD WO CONTRAST No acute extra-axial or parenchymal hemorrhage is identified. There is no significant intra-axial mass effect, midline shift, or extra-axial fluid collection. The carrillo-white differentiation of the major vascular territories is preserved. There is [id number] third ventriculomegaly and mild lateral ventriculomegaly although there is a component of supratentorial involutional change present. The mastoid air cells and the visualized paranasal sinuses are aerated. No acute calvarial abnormality is identified. Impression: 1. There is no evidence of acute intracranial hemorrhage. There is third and lateral ventriculomegaly although may be due to atrophy, no older exams to evaluate for change in size of ventricles. Assessment/Plan Assessment/Plan Impression: Suspect new brainstem stroke with the dysarthria and ataxia, multiple sclerosis exacerbation is possible but much less likely. History of multiple sclerosis, apparently quiescent. Recommendations: It is not safe for him to go home given the severe gait difficulty which is new. MRI of the brain Echocardiogram Carotid Doppler studies Daily aspirin Check lipids Rehabilitation modalities. Fully discussed with the patient and his . Thank you for letting me help with the patient's care. JACK WILKERSON MD Nov 15, 2018 16:21
[2018-11-15] MEDS ORDERED: GADOBUTROL 7.5 MMOL/7.5 ML VIAL IV ONE (17:00)
--- NOTE | 2018-11-15 17:08 | RAD ---
MR of the brain with and without contrast HISTORY: Weakness, slurred speech. History of multiple sclerosis. TECHNIQUE: Axial T1-weighted, gradient echo, T2-weighted, FLAIR, diffusion-weighted, sagittal T1-weighted, and triplanar postcontrast images are obtained. Emergency interpretation was requested. COMPARISON: None FINDINGS: There are some areas of increased diffusion signal bilaterally, thought to be artifact. No restricted diffusion is identified. No evidence of mass lesion or mass effect. Bilateral white matter FLAIR and T2 signal foci, nonspecific, can be associated with chronic small vessel ischemic disease, demyelination or vasculitis. Generalized atrophy. Major vascular structures demonstrate the expected flow void. Mild mucosal thickening of the ethmoid sinuses. There is mucous retention cyst or polyp in the right maxillary sinus. Minimal maxillary sinus mucosal thickening. Orbits are symmetric. No evidence of acute intracranial or extra-axial hemorrhage. IMPRESSION: 1. No evidence of acute infarction. 2. Hyperintense T2/FLAIR lesions in the bilateral white matter. Nonspecific, can be seen with chronic microvascular ischemic disease, demyelination or vasculitis. Electronically signed by: Larry Samuel MD (11/15/2018 5:05 PM) [facility]
--- NOTE | 2018-11-15 19:13 | DS ---
DATE OF DISCHARGE: 11/15/2018 ADMISSION DIAGNOSIS: Transient ischemic attack versus multiple sclerosis flare. DISCHARGE DIAGNOSIS: Resolving transient ischemic attack. HOSPITAL COURSE: The patient is a pleasant middle-aged male who presented with TIA versus MS flare. His states the symptoms came on quickly and went away quickly. We suspect this probably was a TIA versus MS flare. We did consult Neurology. The really would like taking home this afternoon. I did examine him. His heart tones were normal. His lungs were clear. Neurologically, he is back to his baseline, although he is a little weak, but she states this is as good as he gets. We are awaiting Dr. Damon to see him, but if okay with him, we are going to discharge with close outpatient followup. DISPOSITION: Home. ACTIVITY: As tolerated. DIET: Low sodium. MEDICATIONS: Please see the MRAD. Total time 32 minutes. NIAL Maranda BURRIS DO DR: MIGNON/fritz JOB#: [id number] / [id number]
[2018-11-15 19:35] VITALS: BP 113/49
[2018-11-15 23:51] VITALS: BP 124/61
[2018-11-16 03:39] VITALS: BP 111/60
[2018-11-16 06:17] LABS: BASO # 0.1 x10^3/uL (0.0-0.2); BASO % 1 % (0-3); EOS # 0.3 x10^3/uL (0.0-0.7); EOS % 3 % (0-3); HEMATOCRIT 44.8 % (39.0-53.0); HEMOGLOBIN 14.9 g/dL (13.0-17.5); LYMPH # 2.6 x10^3/uL (1.0-4.8); LYMPH % 34 % (24-48); MEAN CORPUSCULAR HEMOGLOBIN 32 pg (25-35); MEAN CORPUSCULAR HGB CONC 33 g/dL (31-37); MEAN CORPUSCULAR VOLUME 95 fL (79-100); MONO # 0.6 x10^3/uL (0.0-1.1); MONO % 8 % (0-9); NEUT # 4.2 x10^3uL (1.8-7.7); NEUT % 54 % (31-73); PLATELET COUNT 227 x10^3/uL (140-400); RED BLOOD COUNT 4.72 x10^6/uL (4.30-5.70); RED CELL DISTRIBUTION WIDTH 14.1 % (11.5-14.5); WHITE BLOOD COUNT 7.7 x10^3/uL (4.0-11.0)
[2018-11-16 06:45] LABS: CHOLESTEROL/HDL RATIO 5.7
[2018-11-16 07:15] VITALS: BP 118/66
[2018-11-16] MEDS ORDERED: ASPIRIN ENTERIC COATED 325 MG TABLET.DR. PO SCH (08:00)
[2018-11-16] MEDS: BACLOFEN 10 MG TABLET. PO SCH (08:15)
--- NOTE | 2018-11-16 08:19 | RAD ---
BILATERAL DUPLEX CAROTID SONOGRAPHY History: DX: CVA; weakness; slurred speech Technique: Duplex sonography of the cervical portion of both carotid arteries was performed. Real-time grayscale, color flow Doppler, and Doppler spectral waveform analysis is performed. Findings: Right side: Peak systolic flow velocity of the distal CCA is 67 cm/sec. Peak systolic flow velocity of the ICA is 96 cm/sec. The ICA/CCA ratio is 1.4. Peak end diastolic flow velocity of the ICA is 25 cm/sec. The peak systolic velocity of the ECA is 107 cm/sec. Mild atherosclerotic calcifications centered in the carotid bulb. Left side: Peak systolic flow velocity of the distal CCA is 87 cm/sec. Peak systolic flow velocity of the ICA is 105 cm/sec. The ICA/CCA ratio is 1.2. Peak end diastolic flow velocity of the ICA is 30 cm/sec. Peak systolic flow velocity of the ECA is 99 cm/sec. Mild atherosclerotic calcifications centered in the carotid bulb. Vertebral arteries: Bilateral vertebral arteries demonstrate antegrade flow. IMPRESSION: Velocities and ratios consistent with less than 50 percent stenosis bilaterally. <50% ICA Stenosis: PSV < 125cm/s (EDV < 40cm/s; SVR < 2.0) 50-69% ICA Stenosis: PSV < 125-229cm/s (EDV 40-99cm/s; SVR 2.0-3.9) >70% ICA Stenosis: PSV > 230cm/s (EDV >100cm/s; SVR >4.0) PQRS Compliance Statement - Stenosis calculations for CT, MR and conventional angiography are based upon measurement of the distal ICA diameter in accordance with the NASCET methodology. Stenosis calculations for carotid ultrasound studies are derived from validated velocity criteria which are known to correlate with the NASCET methodology. Electronically signed by: Hal Diaz MD (11/16/2018 8:15 AM) [facility]
[2018-11-16 08:26] LABS: CREATININE 0.9 mg/dL (0.7-1.3); GFR 85.2; POTASSIUM 4.5 mmol/L (3.5-5.1)
--- NOTE | 2018-11-16 10:09 | PDOC ---
PROGRESS NOTES Assessment Problems Medical Problems: (1) Weakness Status: Acute Brainstem stroke symptoms, negative MRI and other workup He does have some hyperlipidemia History of multiple sclerosis, apparently quiescent. Plan Okay for discharge to home. It turns out he has a walker at home already and I told him he needs to use it Await echocardiogram Daily aspirin Statin, discussed risks, benefits, side effects Follow-up with Dr. Brown, his neurologist Subjective No complaints, feels better, wants to go home Objective Vital Signs Date Time Temp Pulse Resp B/P (MAP) Pulse Ox O2 Delivery O2 Flow Rate FiO2 11/16/18 07:15 97.8 75 18 118/66 (83) 96 Room Air 97.8 Intake and Output 11/16/18 07:00 Intake Total 1500 ml Balance 1500 ml Intake Oral 1500 ml # Voids 4 PHYSICAL EXAM Alert. Oriented to time, place and person. PERRL. EOMI. CN: no focal findings. Dysarthria is better Muscle tone: normal. Muscle strength: 5/5 DTR: 2+ Plantar reflex: Flexor Gait: Ataxic, does well with walker, better than yesterday. Sensory exam: no abnormal findings. No cerebellar signs elicited. Review of Relevant I have reviewed the following items geneva (where applicable) has been applied. Labs Laboratory Tests Test 11/14/18 14:40 11/14/18 16:50 11/16/18 04:50 11/16/18 05:00 White Blood Count 8.9 x10^3/uL (4.0-11.0) 7.7 x10^3/uL (4.0-11.0) Red Blood Count 5.09 x10^6/uL (4.30-5.70) 4.72 x10^6/uL (4.30-5.70) Hemoglobin 16.1 g/dL (13.0-17.5) 14.9 g/dL (13.0-17.5) Hematocrit 48.0 % (39.0-53.0) 44.8 % (39.0-53.0) Mean Corpuscular Volume 94 fL (79-100) 95 fL (79-100) Mean Corpuscular Hemoglobin 32 pg (25-35) 32 pg (25-35) Mean Corpuscular Hemoglobin Concent 34 g/dL (31-37) 33 g/dL (31-37) Red Cell Distribution Width 14.0 % (11.5-14.5) 14.1 % (11.5-14.5) Platelet Count 259 x10^3/uL (140-400) 227 x10^3/uL (140-400) Neutrophils (%) (Auto) 79 % (31-73) 54 % (31-73) Lymphocytes (%) (Auto) 14 % (24-48) 34 % (24-48) Monocytes (%) (Auto) 5 % (0-9) 8 % (0-9) Eosinophils (%) (Auto) 1 % (0-3) 3 % (0-3) Basophils (%) (Auto) 1 % (0-3) 1 % (0-3) Neutrophils # (Auto) 7.1 x10^3uL (1.8-7.7) 4.2 x10^3uL (1.8-7.7) Lymphocytes # (Auto) 1.3 x10^3/uL (1.0-4.8) 2.6 x10^3/uL (1.0-4.8) Monocytes # (Auto) 0.4 x10^3/uL (0.0-1.1) 0.6 x10^3/uL (0.0-1.1) Eosinophils # (Auto) 0.1 x10^3/uL (0.0-0.7) 0.3 x10^3/uL (0.0-0.7) Basophils # (Auto) 0.0 x10^3/uL (0.0-0.2) 0.1 x10^3/uL (0.0-0.2) Prothrombin Time 12.2 SEC (11.7-14.0) Prothromb Time International Ratio 0.9 (0.8-1.1) Sodium Level 140 mmol/L (136-145) 142 mmol/L (136-145) Potassium Level 4.3 mmol/L (3.5-5.1) 4.5 mmol/L (3.5-5.1) Chloride Level 102 mmol/L (98-107) 103 mmol/L (98-107) Carbon Dioxide Level 31 mmol/L (21-32) 29 mmol/L (21-32) Anion Gap 7 (6-14) 10 (6-14) Blood Urea Nitrogen 17 mg/dL (8-26) 18 mg/dL (8-26) Creatinine 0.9 mg/dL (0.7-1.3) 0.9 mg/dL (0.7-1.3) Estimated GFR (Cockcroft-Gault) 85.2 85.2 BUN/Creatinine Ratio 19 (6-20) Glucose Level 107 mg/dL (70-99) 87 mg/dL (70-99) Calcium Level 9.0 mg/dL (8.5-10.1) 9.0 mg/dL (8.5-10.1) Total Bilirubin 0.3 mg/dL (0.2-1.0) Aspartate Amino Transf (AST/SGOT) 22 U/L (15-37) Alanine Aminotransferase (ALT/SGPT) 35 U/L (16-63) Alkaline Phosphatase 85 U/L (46-116) Total Protein 7.4 g/dL (6.4-8.2) Albumin 3.8 g/dL (3.4-5.0) Albumin/Globulin Ratio 1.1 (1.0-1.7) Urine Collection Type Unknown Urine Color Yellow Urine Clarity Cloudy Urine pH 6.5 Urine Specific [place] 1.020 Urine Protein Negative mg/dL (NEG-TRACE) Urine Glucose (UA) Negative mg/dL (NEG) Urine Ketones (Stick) Negative mg/dL (NEG) Urine Blood Negative (NEG) Urine Nitrite Negative (NEG) Urine Bilirubin Negative (NEG) Urine Urobilinogen Dipstick 0.2 mg/dL (0.2 mg/dL) Urine Leukocyte Esterase Negative (NEG) Urine RBC 1-2 /HPF (0-2) Urine WBC 0 /HPF (0-4) Urine Amorphous Sediment Present /HPF Urine Bacteria 0 /HPF (0-FEW) Urine Mucus Mod /LPF Triglycerides Level 221 mg/dL (0-150) Cholesterol Level 199 mg/dL (0-200) LDL Cholesterol, Calculated 120 mg/dL (0-100) VLDL Cholesterol, Calculated 44 mg/dL (0-40) Non-HDL Cholesterol Calculated 164 mg/dL (0-129) HDL Cholesterol 35 mg/dL (40-60) Cholesterol/HDL Ratio 5.7 Laboratory Tests Test 11/16/18 04:50 11/16/18 05:00 White Blood Count 7.7 x10^3/uL (4.0-11.0) Red Blood Count 4.72 x10^6/uL (4.30-5.70) Hemoglobin 14.9 g/dL (13.0-17.5) Hematocrit 44.8 % (39.0-53.0) Mean Corpuscular Volume 95 fL (79-100) Mean Corpuscular Hemoglobin 32 pg (25-35) Mean Corpuscular Hemoglobin Concent 33 g/dL (31-37) Red Cell Distribution Width 14.1 % (11.5-14.5) Platelet Count 227 x10^3/uL (140-400) Neutrophils (%) (Auto) 54 % (31-73) Lymphocytes (%) (Auto) 34 % (24-48) Monocytes (%) (Auto) 8 % (0-9) Eosinophils (%) (Auto) 3 % (0-3) Basophils (%) (Auto) 1 % (0-3) Neutrophils # (Auto) 4.2 x10^3uL (1.8-7.7) Lymphocytes # (Auto) 2.6 x10^3/uL (1.0-4.8) Monocytes # (Auto) 0.6 x10^3/uL (0.0-1.1) Eosinophils # (Auto) 0.3 x10^3/uL (0.0-0.7) Basophils # (Auto) 0.1 x10^3/uL (0.0-0.2) Triglycerides Level 221 mg/dL (0-150) Cholesterol Level 199 mg/dL (0-200) LDL Cholesterol, Calculated 120 mg/dL (0-100) VLDL Cholesterol, Calculated 44 mg/dL (0-40) Non-HDL Cholesterol Calculated 164 mg/dL (0-129) HDL Cholesterol 35 mg/dL (40-60) Cholesterol/HDL Ratio 5.7 Sodium Level 142 mmol/L (136-145) Potassium Level 4.5 mmol/L (3.5-5.1) Chloride Level 103 mmol/L (98-107) Carbon Dioxide Level 29 mmol/L (21-32) Anion Gap 10 (6-14) Blood Urea Nitrogen 18 mg/dL (8-26) Creatinine 0.9 mg/dL (0.7-1.3) Estimated GFR (Cockcroft-Gault) 85.2 Glucose Level 87 mg/dL (70-99) Calcium Level 9.0 mg/dL (8.5-10.1) Medications Current Medications Aspirin (Children'S Aspirin) 324 mg 1X ONCE PO Last administered on 11/14/18at 15:49; Start 11/14/18 at 15:30; Stop 11/14/18 at 15:31; Status DC Ondansetron HCl (Zofran) 4 mg PRN Q4HRS PRN IV NAUSEA/VOMITING; Start 11/14/18 at 16:15 Acetaminophen (Tylenol) 650 mg PRN Q4HRS PRN PO TEMP OVER 100.4F OR MILD PAIN; Start 11/14/18 at 16:15; Stop 11/15/18 at 15:35; Status DC Al Hydroxide/Mg Hydroxide (Mylanta Plus Xs) 30 ml PRN DAILY PRN PO HEARTBURN / GAS; Start 11/14/18 at 16:15 Diphenhydramine HCl (Benadryl) 25 mg PRN Q4HRS PRN IVP ITCHING; Start 11/14/18 at 16:15 Docusate Sodium (Colace) 100 mg PRN BID PRN PO CONSTIPATION; Start 11/14/18 at 16:15 Albuterol Sulfate (Ventolin Neb Soln) 2.5 mg PRN Q4HRS PRN NEB SHORTNESS OF BREATH,1st CHOICE; Start 11/14/18 at 16:15 Albuterol/ Ipratropium (Duoneb) 3 ml Q4H NEB ; Start 11/14/18 at 16:15; Stop 11/14 at 16:18; Status DC Guaifenesin (Robitussin) 200 mg PRN Q4HRS PRN PO COUGH; Start 11/14/18 at 16:15 Lorazepam (Ativan) 0.5 mg PRN Q4HRS PRN PO ANXIETY / AGITATION; Start 11/14/18 at 16:15 Hydromorphone HCl (Dilaudid) 1 mg PRN Q2HRS PRN IV SEVERE PAIN; Start 11/14/18 at 16:15 Albuterol/ Ipratropium (Duoneb) 3 ml Q4HRS NEB ; Start 11/14/18 at 20:00; Stop at 09:55; Status DC Baclofen (Lioresal) 10 mg BID PO Last administered on 11/16/18at 08:15; Start 11/14/18 at 21:00 Paroxetine HCl (Paxil) 20 mg DAILY PO ; Start 11/15/18 at 09:00; Stop 11/15/18 at 09:07; Status DC Quetiapine Fumarate (SEROquel) 50 mg DAILY PO ; Start 11/15/18 at 09:00; Stop 11/15/18 at 09:07; Status DC Paroxetine HCl (Paxil) 20 mg HS PO Last administered on 11/15/18at 20:39; Start 11/15/18 at 21:00 Quetiapine Fumarate (SEROquel) 50 mg HS PO Last administered on 11/15/18at 20:39 ; Start 11/15/18 at 21:00 Albuterol/ Ipratropium (Duoneb) 3 ml PRN Q4HRS PRN NEB SHORTNESS OF BREATH,2nd CHOICE; Start 11/15/18 at 10:00 Aspirin (Parminder Aspirin) 325 mg DAILYWBKFT PO Last administered on 11/15/18at 11: 44; Start 11/15/18 at 11:30; Stop 11/15/18 at 15:36; Status DC Acetaminophen (Tylenol) 650 mg PRN Q6HRS PRN PO TEMP > 100.4F; Start 11/15/18 at 15:30 Acetaminophen (Tylenol Supp) 650 mg PRN Q4HRS PRN PA TEMP > 100.4F; Start at 15:30 Aspirin (Ecotrin) 325 mg DAILYWBKFT PO Last administered on 11/16/18at 08:15; Start 11/16/18 at 08:00 Aspirin (Aspirin) 300 mg PRN DAILY PRN PA IF UNABLE TO TAKE PO; Start 11/15/18 at 15:30 Gadobutrol (Gadavist) 7.5 mmol 1X ONCE IV Last administered on 11/15/18at 16:43 ; Start 11/15/18 at 17:00; Stop 11/15/18 at 17:01; Status DC Active Scripts Active Reported Quetiapine Fumarate 50 Mg Tablet 50 PO DAILY Baclofen 10 Mg Tablet 10 PO BID Paroxetine Hcl 20 Mg Tablet 20 PO DAILY Folic Acid 1 Mg Tablet 1 PO DAILY Vitals/I & O Vital Sign - Last 24 Hours 11/15/18 11/15/18 11/15/18 11/15/18 11:00 15:00 19:35 20:15 Temp 98.4 98.0 98.2 98.4 98.0 98.2 Pulse 66 67 67 Resp 18 20 16 B/P (MAP) 96/48 (64) 118/54 (75) 113/49 (70) Pulse Ox 93 98 94 O2 Delivery Room Air Room Air Room Air Room Air 11/15/18 11/16/18 11/16/18 23:51 03:39 07:15 Temp 97.5 97.6 97.8 97.5 97.6 97.8 Pulse 78 73 75 Resp 16 16 18 B/P (MAP) 124/61 (82) 111/60 (77) 118/66 (83) Pulse Ox 98 92 96 O2 Delivery Room Air Room Air Room Air Intake and Output 11/15/18 11/15/18 11/16/18 15:00 23:00 07:00 Intake Total 300 ml 700 ml 500 ml Balance 300 ml 700 ml 500 ml Images MR of the brain with and without contrast HISTORY: Weakness, slurred speech. History of multiple sclerosis. TECHNIQUE: Axial T1-weighted, gradient echo, T2-weighted, FLAIR, diffusion-weighted, sagittal T1-weighted, and triplanar postcontrast images are obtained. Emergency interpretation was requested. COMPARISON: None FINDINGS: There are some areas of increased diffusion signal bilaterally, thought to be artifact. No restricted diffusion is identified. No evidence of mass lesion or mass effect. Bilateral white matter FLAIR and T2 signal foci, nonspecific, can be associated with chronic small vessel ischemic disease, demyelination or vasculitis. Generalized atrophy. Major vascular structures demonstrate the expected flow void. Mild mucosal thickening of the ethmoid sinuses. There is mucous retention cyst or polyp in the right maxillary sinus. Minimal maxillary sinus mucosal thickening. Orbits are symmetric. No evidence of acute intracranial or extra-axial hemorrhage. IMPRESSION: 1. No evidence of acute infarction. 2. Hyperintense T2/FLAIR lesions in the bilateral white matter. Nonspecific, can be seen with chronic microvascular ischemic disease, demyelination or vasculitis. BILATERAL DUPLEX CAROTID SONOGRAPHY History: DX: CVA; weakness; slurred speech Technique: Duplex sonography of the cervical portion of both carotid arteries was performed. Real-time grayscale, color flow Doppler, and Doppler spectral waveform analysis is performed. Findings: Right side: Peak systolic flow velocity of the distal CCA is 67 cm/sec. Peak systolic flow velocity of the ICA is 96 cm/sec. The ICA/CCA ratio is 1.4. Peak end diastolic flow velocity of the ICA is 25 cm/sec. The peak systolic velocity of the ECA is 107 cm/sec. Mild atherosclerotic calcifications centered in the carotid bulb. Left side: Peak systolic flow velocity of the distal CCA is 87 cm/sec. Peak systolic flow velocity of the ICA is 105 cm/sec. The ICA/CCA ratio is 1.2. Peak end diastolic flow velocity of the ICA is 30 cm/sec. Peak systolic flow velocity of the ECA is 99 cm/sec. Mild atherosclerotic calcifications centered in the carotid bulb. Vertebral arteries: Bilateral vertebral arteries demonstrate antegrade flow. IMPRESSION: Velocities and ratios consistent with less than 50 percent stenosis bilaterally. JACK WILKERSON MD Nov 16, 2018 10:09
[2018-11-16 11:15] VITALS: BP 128/50
--- NOTE | 2018-11-16 13:05 | PDOC ---
PROGRESS NOTES Chief Complaint Chief Complaint general weakness, slurred speech History of Present Illness History of Present Illness Patient sitting in bed side chair with . He is ready to go home, pending ECHO. Vitals Vitals Vital Signs Date Time Temp Pulse Resp B/P (MAP) Pulse Ox O2 Delivery O2 Flow Rate FiO2 11/16/18 11:15 97.9 69 18 128/50 (76) 96 Room Air 97.9 Physical Exam General: Alert, Oriented X3, Cooperative, No acute distress Heart: Regular rate, Normal S1, Normal S2, No murmurs Lungs: Clear, Other (symmetric chest expansion, good inspiratory effort) Abdomen: Normal bowel sounds, Soft, No tenderness Extremities: No clubbing, No cyanosis, No edema Skin: No rashes, No breakdown, No significant lesion Labs LABS Laboratory Tests Test 11/16/18 04:50 11/16/18 05:00 White Blood Count 7.7 x10^3/uL (4.0-11.0) Red Blood Count 4.72 x10^6/uL (4.30-5.70) Hemoglobin 14.9 g/dL (13.0-17.5) Hematocrit 44.8 % (39.0-53.0) Mean Corpuscular Volume 95 fL (79-100) Mean Corpuscular Hemoglobin 32 pg (25-35) Mean Corpuscular Hemoglobin Concent 33 g/dL (31-37) Red Cell Distribution Width 14.1 % (11.5-14.5) Platelet Count 227 x10^3/uL (140-400) Neutrophils (%) (Auto) 54 % (31-73) Lymphocytes (%) (Auto) 34 % (24-48) Monocytes (%) (Auto) 8 % (0-9) Eosinophils (%) (Auto) 3 % (0-3) Basophils (%) (Auto) 1 % (0-3) Neutrophils # (Auto) 4.2 x10^3uL (1.8-7.7) Lymphocytes # (Auto) 2.6 x10^3/uL (1.0-4.8) Monocytes # (Auto) 0.6 x10^3/uL (0.0-1.1) Eosinophils # (Auto) 0.3 x10^3/uL (0.0-0.7) Basophils # (Auto) 0.1 x10^3/uL (0.0-0.2) Triglycerides Level 221 mg/dL (0-150) Cholesterol Level 199 mg/dL (0-200) LDL Cholesterol, Calculated 120 mg/dL (0-100) VLDL Cholesterol, Calculated 44 mg/dL (0-40) Non-HDL Cholesterol Calculated 164 mg/dL (0-129) HDL Cholesterol 35 mg/dL (40-60) Cholesterol/HDL Ratio 5.7 Sodium Level 142 mmol/L (136-145) Potassium Level 4.5 mmol/L (3.5-5.1) Chloride Level 103 mmol/L (98-107) Carbon Dioxide Level 29 mmol/L (21-32) Anion Gap 10 (6-14) Blood Urea Nitrogen 18 mg/dL (8-26) Creatinine 0.9 mg/dL (0.7-1.3) Estimated GFR (Cockcroft-Gault) 85.2 Glucose Level 87 mg/dL (70-99) Calcium Level 9.0 mg/dL (8.5-10.1) Review of Systems Review of Systems as per above Assessment and Plan Assessmemt and Plan Problems Medical Problems: (1) Weakness Status: Acute Assessment: TIA Generalized weakness - back to baseline Hyperlipidemia Multiple Sclerosis, history of Plan: Await ECHO Neuro: daily aspirin, statin- appreciate recs Brain MRI - no evidence of acute infarction Head CT - no acute hemorrhage, 3rd and lateral ventriculomegaly CXR negative UA negative Follow up with Dr. Brown at neurology Follow up with PCP within 7 days Dispo: awaiting ECHO, hope to discharge home today following ECHO. Comment Review of Relevant I have reviewed the following items [place]eva (where applicable) has been applied. Labs Laboratory Tests Test 11/14/18 14:40 11/14/18 16:50 11/16/18 04:50 11/16/18 05:00 White Blood Count 8.9 x10^3/uL (4.0-11.0) 7.7 x10^3/uL (4.0-11.0) Red Blood Count 5.09 x10^6/uL (4.30-5.70) 4.72 x10^6/uL (4.30-5.70) Hemoglobin 16.1 g/dL (13.0-17.5) 14.9 g/dL (13.0-17.5) Hematocrit 48.0 % (39.0-53.0) 44.8 % (39.0-53.0) Mean Corpuscular Volume 94 fL (79-100) 95 fL (79-100) Mean Corpuscular Hemoglobin 32 pg (25-35) 32 pg (25-35) Mean Corpuscular Hemoglobin Concent 34 g/dL (31-37) 33 g/dL (31-37) Red Cell Distribution Width 14.0 % (11.5-14.5) 14.1 % (11.5-14.5) Platelet Count 259 x10^3/uL (140-400) 227 x10^3/uL (140-400) Neutrophils (%) (Auto) 79 % (31-73) 54 % (31-73) Lymphocytes (%) (Auto) 14 % (24-48) 34 % (24-48) Monocytes (%) (Auto) 5 % (0-9) 8 % (0-9) Eosinophils (%) (Auto) 1 % (0-3) 3 % (0-3) Basophils (%) (Auto) 1 % (0-3) 1 % (0-3) Neutrophils # (Auto) 7.1 x10^3uL (1.8-7.7) 4.2 x10^3uL (1.8-7.7) Lymphocytes # (Auto) 1.3 x10^3/uL (1.0-4.8) 2.6 x10^3/uL (1.0-4.8) Monocytes # (Auto) 0.4 x10^3/uL (0.0-1.1) 0.6 x10^3/uL (0.0-1.1) Eosinophils # (Auto) 0.1 x10^3/uL (0.0-0.7) 0.3 x10^3/uL (0.0-0.7) Basophils # (Auto) 0.0 x10^3/uL (0.0-0.2) 0.1 x10^3/uL (0.0-0.2) Prothrombin Time 12.2 SEC (11.7-14.0) Prothromb Time International Ratio 0.9 (0.8-1.1) Sodium Level 140 mmol/L (136-145) 142 mmol/L (136-145) Potassium Level 4.3 mmol/L (3.5-5.1) 4.5 mmol/L (3.5-5.1) Chloride Level 102 mmol/L (98-107) 103 mmol/L (98-107) Carbon Dioxide Level 31 mmol/L (21-32) 29 mmol/L (21-32) Anion Gap 7 (6-14) 10 (6-14) Blood Urea Nitrogen 17 mg/dL (8-26) 18 mg/dL (8-26) Creatinine 0.9 mg/dL (0.7-1.3) 0.9 mg/dL (0.7-1.3) Estimated GFR (Cockcroft-Gault) 85.2 85.2 BUN/Creatinine Ratio 19 (6-20) Glucose Level 107 mg/dL (70-99) 87 mg/dL (70-99) Calcium Level 9.0 mg/dL (8.5-10.1) 9.0 mg/dL (8.5-10.1) Total Bilirubin 0.3 mg/dL (0.2-1.0) Aspartate Amino Transf (AST/SGOT) 22 U/L (15-37) Alanine Aminotransferase (ALT/SGPT) 35 U/L (16-63) Alkaline Phosphatase 85 U/L (46-116) Total Protein 7.4 g/dL (6.4-8.2) Albumin 3.8 g/dL (3.4-5.0) Albumin/Globulin Ratio 1.1 (1.0-1.7) Urine Collection Type Unknown Urine Color Yellow Urine Clarity Cloudy Urine pH 6.5 Urine Specific [place] 1.020 Urine Protein Negative mg/dL (NEG-TRACE) Urine Glucose (UA) Negative mg/dL (NEG) Urine Ketones (Stick) Negative mg/dL (NEG) Urine Blood Negative (NEG) Urine Nitrite Negative (NEG) Urine Bilirubin Negative (NEG) Urine Urobilinogen Dipstick 0.2 mg/dL (0.2 mg/dL) Urine Leukocyte Esterase Negative (NEG) Urine RBC 1-2 /HPF (0-2) Urine WBC 0 /HPF (0-4) Urine Amorphous Sediment Present /HPF Urine Bacteria 0 /HPF (0-FEW) Urine Mucus Mod /LPF Triglycerides Level 221 mg/dL (0-150) Cholesterol Level 199 mg/dL (0-200) LDL Cholesterol, Calculated 120 mg/dL (0-100) VLDL Cholesterol, Calculated 44 mg/dL (0-40) Non-HDL Cholesterol Calculated 164 mg/dL (0-129) HDL Cholesterol 35 mg/dL (40-60) Cholesterol/HDL Ratio 5.7 Laboratory Tests Test 11/16/18 04:50 11/16/18 05:00 White Blood Count 7.7 x10^3/uL (4.0-11.0) Red Blood Count 4.72 x10^6/uL (4.30-5.70) Hemoglobin 14.9 g/dL (13.0-17.5) Hematocrit 44.8 % (39.0-53.0) Mean Corpuscular Volume 95 fL (79-100) Mean Corpuscular Hemoglobin 32 pg (25-35) Mean Corpuscular Hemoglobin Concent 33 g/dL (31-37) Red Cell Distribution Width 14.1 % (11.5-14.5) Platelet Count 227 x10^3/uL (140-400) Neutrophils (%) (Auto) 54 % (31-73) Lymphocytes (%) (Auto) 34 % (24-48) Monocytes (%) (Auto) 8 % (0-9) Eosinophils (%) (Auto) 3 % (0-3) Basophils (%) (Auto) 1 % (0-3) Neutrophils # (Auto) 4.2 x10^3uL (1.8-7.7) Lymphocytes # (Auto) 2.6 x10^3/uL (1.0-4.8) Monocytes # (Auto) 0.6 x10^3/uL (0.0-1.1) Eosinophils # (Auto) 0.3 x10^3/uL (0.0-0.7) Basophils # (Auto) 0.1 x10^3/uL (0.0-0.2) Triglycerides Level 221 mg/dL (0-150) Cholesterol Level 199 mg/dL (0-200) LDL Cholesterol, Calculated 120 mg/dL (0-100) VLDL Cholesterol, Calculated 44 mg/dL (0-40) Non-HDL Cholesterol Calculated 164 mg/dL (0-129) HDL Cholesterol 35 mg/dL (40-60) Cholesterol/HDL Ratio 5.7 Sodium Level 142 mmol/L (136-145) Potassium Level 4.5 mmol/L (3.5-5.1) Chloride Level 103 mmol/L (98-107) Carbon Dioxide Level 29 mmol/L (21-32) Anion Gap 10 (6-14) Blood Urea Nitrogen 18 mg/dL (8-26) Creatinine 0.9 mg/dL (0.7-1.3) Estimated GFR (Cockcroft-Gault) 85.2 Glucose Level 87 mg/dL (70-99) Calcium Level 9.0 mg/dL (8.5-10.1) Medications Current Medications Aspirin (Children'S Aspirin) 324 mg 1X ONCE PO Last administered on 11/14/18at 15:49; Start 11/14/18 at 15:30; Stop 11/14/18 at 15:31; Status DC Ondansetron HCl (Zofran) 4 mg PRN Q4HRS PRN IV NAUSEA/VOMITING; Start 11/14/18 at 16:15 Acetaminophen (Tylenol) 650 mg PRN Q4HRS PRN PO TEMP OVER 100.4F OR MILD PAIN; Start 11/14/18 at 16:15; Stop 11/15/18 at 15:35; Status DC Al Hydroxide/Mg Hydroxide (Mylanta Plus Xs) 30 ml PRN DAILY PRN PO HEARTBURN / GAS; Start 11/14/18 at 16:15 Diphenhydramine HCl (Benadryl) 25 mg PRN Q4HRS PRN IVP ITCHING; Start 11/14/18 at 16:15 Docusate Sodium (Colace) 100 mg PRN BID PRN PO CONSTIPATION; Start 11/14/18 at 16:15 Albuterol Sulfate (Ventolin Neb Soln) 2.5 mg PRN Q4HRS PRN NEB SHORTNESS OF BREATH,1st CHOICE; Start 11/14/18 at 16:15 Albuterol/ Ipratropium (Duoneb) 3 ml Q4H NEB ; Start 11/14/18 at 16:15; Stop 11/14 at 16:18; Status DC Guaifenesin (Robitussin) 200 mg PRN Q4HRS PRN PO COUGH; Start 11/14/18 at 16:15 Lorazepam (Ativan) 0.5 mg PRN Q4HRS PRN PO ANXIETY / AGITATION; Start 11/14/18 at 16:15 Hydromorphone HCl (Dilaudid) 1 mg PRN Q2HRS PRN IV SEVERE PAIN; Start 11/14/18 at 16:15 Albuterol/ Ipratropium (Duoneb) 3 ml Q4HRS NEB ; Start 11/14/18 at 20:00; Stop at 09:55; Status DC Baclofen (Lioresal) 10 mg BID PO Last administered on 11/16/18at 08:15; Start 11/14/18 at 21:00 Paroxetine HCl (Paxil) 20 mg DAILY PO ; Start 11/15/18 at 09:00; Stop 11/15/18 at 09:07; Status DC Quetiapine Fumarate (SEROquel) 50 mg DAILY PO ; Start 11/15/18 at 09:00; Stop 11/15/18 at 09:07; Status DC Paroxetine HCl (Paxil) 20 mg HS PO Last administered on 11/15/18at 20:39; Start 11/15/18 at 21:00 Quetiapine Fumarate (SEROquel) 50 mg HS PO Last administered on 11/15/18at 20:39 ; Start 11/15/18 at 21:00 Albuterol/ Ipratropium (Duoneb) 3 ml PRN Q4HRS PRN NEB SHORTNESS OF BREATH,2nd CHOICE; Start 11/15/18 at 10:00 Aspirin (Parminder Aspirin) 325 mg DAILYWBKFT PO Last administered on 11/15/18at 11: 44; Start 11/15/18 at 11:30; Stop 11/15/18 at 15:36; Status DC Acetaminophen (Tylenol) 650 mg PRN Q6HRS PRN PO TEMP > 100.4F; Start 11/15/18 at 15:30 Acetaminophen (Tylenol Supp) 650 mg PRN Q4HRS PRN ME TEMP > 100.4F; Start at 15:30 Aspirin (Ecotrin) 325 mg DAILYWBKFT PO Last administered on 11/16/18at 08:15; Start 11/16/18 at 08:00 Aspirin (Aspirin) 300 mg PRN DAILY PRN ME IF UNABLE TO TAKE PO; Start 4/6/19 at 15:30 Gadobutrol (Gadavist) 7.5 mmol 1X ONCE IV Last administered on 11/15/18at 16:43 ; Start 11/15/18 at 17:00; Stop 11/15/18 at 17:01; Status DC Atorvastatin Calcium (Lipitor) 10 mg QHS PO ; Start 11/16/18 at 21:00 Active Scripts Active Reported Quetiapine Fumarate 50 Mg Tablet 50 PO DAILY Baclofen 10 Mg Tablet 10 PO BID Paroxetine Hcl 20 Mg Tablet 20 PO DAILY Folic Acid 1 Mg Tablet 1 PO DAILY Vitals/I & O Vital Sign - Last 24 Hours 11/15/18 11/15/18 11/15/18 11/15/18 15:00 19:35 20:15 23:51 Temp 98.0 98.2 97.5 98.0 98.2 97.5 Pulse 67 67 78 Resp 20 16 16 B/P (MAP) 118/54 (75) 113/49 (70) 124/61 (82) Pulse Ox 98 94 98 O2 Delivery Room Air Room Air Room Air Room Air 11/16/18 11/16/18 11/16/18 11/16/18 03:39 07:15 08:00 11:15 Temp 97.6 97.8 97.9 97.6 97.8 97.9 Pulse 73 75 69 Resp 16 18 18 B/P (MAP) 111/60 (77) 118/66 (83) 128/50 (76) Pulse Ox 92 96 96 O2 Delivery Room Air Room Air Room Air Room Air Intake and Output 11/15/18 11/15/18 11/16/18 15:00 23:00 07:00 Intake Total 300 ml 700 ml 500 ml Balance 300 ml 700 ml 500 ml NARAYAN BURRIS III DO Nov 16, 2018 13:05
--- NOTE | 2018-11-16 14:25 | NUR ---
This nurse verified with Dr. Vallecillo ok to discharge with outpatient ECHO. This nurse will continue to assist with this patient.
[2018-11-16] MEDS ORDERED: ATOR20TA PO (15:34)
--- NOTE | 2018-11-16 15:47 | NUR ---
This nurse verified Lipitor order for patient, [facility] [place], [place]. Discussed the importance of the outpatient ECHO with patient, family stated, "We will have Dr. Brown set up an appointment if unable to get in here for outpatient." This nurse will continue to assist as needed.
--- NOTE | 2018-11-16 16:47 | NUR ---
Discharge Note: LEFTY ROJO Discharge instructions and discharge home medications reviewed with patient and spouse; and a copy given. All questions have been answered and understanding verbalized. The following instructions and handouts were given: 2D echo as out patient Echocardiography handout Follow up with Dr. Brown (neurologist) at . Stroke education Aspirin and statin daily Discontinued lines and drains: peripheral IV intact, patient tolerated removal, no complications noted. Patient discharged to home with self-care accompanied by patient's spouse via wheelchair with at 1550.
[2018-11-16] MEDS ORDERED: ATORVASTATIN CALCIUM 10 MG TABLET. PO SCH (21:00)
== END 2018-11-16 15:53 | disposition home or self-care (01) | DRG 59 ==
LOC: ER 14:00 → 6 SOUTH 15:27
PROVIDERS: ADMIT Internal Medicine; ATTEND Internal Medicine
DX: G35 Multiple sclerosis (principal); G45.9 Transient cerebral ischemic attack, unspecified; F17.210 Nicotine dependence, cigarettes, uncomplicated; E78.5 Hyperlipidemia, unspecified; Z82.49 Family history of ischemic heart disease and other diseases of the circulatory system
CPT/HCPCS: 36415; 70450; 70553; 71045; 80048; 80053; 80061; 81001; 85025; 85610; 93005; 93880; 96374; A9585; 92610; 99285-25